=== PATIENT | male | born 1955 | race Caucasian/White ===

== ENCOUNTER 2016-08-31 22:49 | Observation (INO) | payer MEDICAID, OTHER ==
[2016-08-31] MEDS ORDERED: NS 500 ML IV ONE (23:00)
--- NOTE | 2016-08-31 23:00 | EDPHY ---
H & P Stated Complaint: sob cp HPI/ROS: HPI CHIEF COMPLAINT: Shortness of breath, chest pain HISTORY OF PRESENT ILLNESS: This patient very pleasant 61-year-old male significant past medical history for pulmonary embolism, hypertension, factor 5 Leiden non STEMI, presents emergency room shortness of breath and chest pain. He states for the past 2 days he has had fatigue generalized weakness, he noticed today that he had left calf swelling and pain, and also noticed over the past 2 days he has been having left-sided chest discomfort he describes it as a at times sharp pain however sometimes pressure. Nonradiating. Does not get worse with exertion however he does feel short of breath with exertion. No fever, no recent cough, no vomiting, no nausea, no referral pain. Pain does not get worse with exertion.Denies hemoptysis. States he has been compliant with his medication. Past Medical History: Saddle pulmonary embolism, hypertension, factor 5 Leiden deficiency, degenerative joint disease, non STEMI, hypertension, lumbar back pain, obstructive sleep apnea Past Surgical History: No recent surgical history Social History: denies daily use of drugs alcohol tobacco products Family History: Noncontributory ROS REVIEW OF SYSTEMS: A comprehensive 10 point review of systems is otherwise negative aside from elements mentioned in the history of present illness. Exam Constitutional appears well nontoxic triage nursing summary reviewed, vital signs reviewed, awake/alert. Eyes normal conjunctivae and sclera, EOMI, PERRLA. HENT normal inspection, atraumatic, moist mucus membranes, no epistaxis, neck supple/ no meningismus, no raccoon eyes. Respiratory clear to auscultation bilaterally, normal breath sounds, no respiratory distress, no wheezing. Cardiovascular rate normal, regular rhythm, no murmur, no edema, distal pulses normal. Gastrointestinal soft, non-tender, no rebound, no guarding, normal bowel sounds, no distension, no pulsatile mass. Genitourinary no CVA tenderness. Musculoskeletal no midline vertebral tenderness, full range of motion, no calf swelling, no tenderness of extremities, no meningismus, good pulses, neurovascularly intact. Skin pink, warm, & dry, no rash, skin atraumatic. Neurologic awake, alert and oriented x 3, AAOx3, moves all 4 extremities equally, motor intact, sensory intact, CN II-XII intact, normal cerebellar, normal vision, normal speech. Psychiatric normal mood/affect. Heme/Lymph/Immune no lymphadenopathy. Differential diagnosis includes but is not limited to: ACS, atypical chest pain , pneumothorax, pneumonia, pulmonary embolism, aortic dissection, congestive heart failure, tumor, musculoskeletal pain, esophageal pain, GERD, peptic ulcer disease, pancreatitis Medical Decision Making: To this patient having history of factor 5 Leiden deficiency with left leg swelling, sharp pleuritic pain will check an ultrasound the left lower extremity, blood work, troponin, EKG, chest x-ray one view, placed on full public area attendant he will receive full-dose aspirin he does take Eliquis. Will need to rule out pulmonary embolism as well. Re-evaluation: EKG interpretation by me on record in [facility] system. Impression time of EKG 0, this is sinus rhythm rate of 65 no acute ischemic changes appreciated specifically no ST elevation, ST depression, T-wave abnormalities prolonged intervals. Unremarkable EKG. 9: Patient received 1 dose of nitroglycerin this greatly improved his chest discomfort. He is now chest pain-free. [id number]: RE-EVALUATION AT THIS TIME IS NOTED THIS PATIENT HAS A NEGATIVE TROPONIN, NEGATIVE D-DIMER, HIS CHEST PAIN IMPROVED AFTER NITROGLYCERIN. ED x-ray chest one view: Negative for acute cardiopulmonary disease. Ultrasound of the left lower extremity The results of the study are negative for DVT I discussed the results of this study with the radiologist 1241: PATIENT IS RESTING COMFORTABLY HERE DID RE-EVALUATE HE IS CHEST PAIN- FREE. NO ACUTE DISTRESS. HE IS AGREEABLE FOR EACU OBSERVATION ADMISSION FOR CHEST PAIN EVALUATION. I spoke with Dr. Cross the hospitalist service agrees to admit this patient. Source: Patient - Personal History Current Tetanus/Diphtheria Vaccine: Yes Current Tetanus Diphtheria and Acellular Pertussis (TDAP): Yes - Medical/Surgical History Hx Asthma: No Hx Chronic Respiratory Disease: No Hx Diabetes: No Hx Cardiac Disease: No Hx Renal Disease: No Hx Cirrhosis: No Hx Alcoholism: No Hx HIV/AIDS: No Hx Splenectomy or Spleen Trauma: No Other PMH: back surgery x 2 fusions, implanted pain-Dilaudid pump in spine, right knee surgery, choley, HTN, anxiety, hypothyroidism, saddle PE. Factor V Leiden, Central and Obstructive sleep apnoea. - Social History Smoking Status: Never smoked Constitutional: Initial Vital Signs Temperature (C) 36.8 C 08/31/16 22:55 Heart Rate 67 08/31/16 22:55 Respiratory Rate 18 08/31/16 22:55 Blood Pressure 143/99 H 08/31/16 22:55 O2 Sat (%) 96 08/31/16 22:55 O2 Delivery Mode Room Air Allergies/Adverse Reactions: morphine Allergy (Verified 05/17/16 11:15) Hives BLOOD PRODUCTS Allergy (Uncoded 05/28/16 21:53) Anaphylaxis Home Medications: Medication Instructions Recorded LORazepam [Ativan (*)] 1 mg PO BID PRN 12/16/14 Venlafaxine HCl [Venlafaxine 37.5 mg PO BID 12/16/14 37.5MG (*)] Apixaban [Eliquis] 5 mg PO BID 02/17/16 Dilaudid Pain Pump 0 mg IPL DAILY 02/17/16 Levothyroxine [Synthroid 75 mcg 75 mcg PO DAILY06 02/17/16 (*)] Androgel 05/17/16 ENALAPRIL MALEATE 05/17/16 Hydrochlorothiazide 05/17/16 Potassium 05/17/16 Diazepam [Valium 5 MG (*)] 5 mg PO TID PRN #7 tab 05/28/16 Propranolol HCl 08/31/16 Medical Decision Making - Data Points Laboratory Results: Laboratory Results 08/31/16 23:15 08/31/16 23:15 08/31/16 08/31/16 08/31/16 23:15 23:15 23:15 WBC 6.52 10^3/uL 10^3/uL (3.80-9.50) RBC 5.55 10^6/uL 10^6/uL (4.40-6.38) Hgb 12.7 g/dL L g/dL (13.7-17.5) Hct 40.2 % % (40.0-51.0) MCV 72.4 fL L fL (81.5-99.8) MCH 22.9 pg L pg (27.9-34.1) MCHC 31.6 g/dL L g/dL (32.4-36.7) RDW 16.8 % H % (11.5-15.2) Plt Count 353 10^3/uL 10^3/uL (150-400) MPV 9.3 fL fL (8.7-11.7) Neut % (Auto) 52.4 % % (39.3-74.2) Lymph % (Auto) 32.4 % % (15.0-45.0) Price % (Auto) 10.0 % % (4.5-13.0) Eos % (Auto) 3.1 % % (0.6-7.6) Baso % (Auto) 1.8 % H % (0.3-1.7) Nucleat RBC Rel Count 0.0 % % (0.0-0.2) Absolute Neuts (auto) 3.42 10^3/uL 10^3/uL (1.70-6.50) Absolute Lymphs (auto) 2.11 10^3/uL 10^3/uL (1.00-3.00) Absolute Monos (auto) 0.65 10^3/uL 10^3/uL (0.30-0.80) Absolute Eos (auto) 0.20 10^3/uL 10^3/uL (0.03-0.40) Absolute Basos (auto) 0.12 10^3/uL H 10^3/uL (0.02-0.10) Absolute Nucleated RBC 0.00 10^3/uL 10^3/uL (0-0.01) Immature Gran % 0.3 % % (0.0-1.1) Immature Gran # 0.02 10^3/uL 10^3/uL (0.00-0.10) PT 13.1 SEC SEC (12.0-15.0) INR 1.00 (0.83-1.16) APTT 26.7 SEC SEC (23.0-38.0) D-Dimer 0.32 ug/mLFEU ug/mLFEU (0.00-0.50) Sodium 135 mEq/L mEq/L (134-144) Potassium 4.1 mEq/L mEq/L (3.5-5.2) Chloride 102 mEq/L mEq/L (97-110) Carbon Dioxide 23 mEq/l mEq/l (22-31) Anion Gap 10 mEq/L mEq/L (8-16) BUN 18 mg/dL mg/dL (7-23) Creatinine 0.8 mg/dL mg/dL (0.7-1.3) Estimated GFR > 60 Glucose 111 mg/dL H mg/dL (70-100) Calcium 9.0 mg/dL mg/dL (8.5-10.4) Magnesium 2.1 mg/dL mg/dL (1.6-2.3) Total Bilirubin 0.6 mg/dL mg/dL (0.1-1.4) Conjugated Bilirubin 0.5 mg/dL mg/dL (0.0-0.5) Unconjugated Bilirubin 0.1 mg/dL mg/dL (0.0-1.1) AST 38 IU/L IU/L (17-59) ALT 42 IU/L IU/L (21-72) Alkaline Phosphatase 63 IU/L IU/L (38-126) Creatine Kinase 186 IU/L IU/L (0-224) CK-MB (CK-2) Fraction 2.64 ng/mL ng/mL (0-3.19) Troponin I < 0.012 ng/mL ng/mL (0-0.034) NT-Pro-B Natriuret Pep 40 pg/mL pg/mL (0-125) Total Protein 7.1 g/dL g/dL (6.3-8.2) Albumin 4.4 g/dL g/dL (3.5-5.0) Lipase 180.0 IU/L IU/L (23-300) Medications Given: Discontinued Medications Aspirin (Aspirin) 325 mg PO EDNOW ONE Stop: 08/31/16 23:08 Last Admin: 08/31/16 23:24 Dose: 325 mg Sodium Chloride (Ns) 500 mls @ 0 mls/hr IV ONCE ONE PRN Reason: As Directed Stop: 08/31/16 23:01 Last Admin: 08/31/16 23:55 Dose: 500 mls Nitroglycerin (Nitrostat) 0.4 mg SL EDNOW ONE Stop: 08/31/16 23:08 Last Admin: 08/31/16 23:23 Dose: 0.4 mg Departure - Departure Disposition: [facility] Inpatient Acute Clinical Impression: Chest pain Qualifiers: Chest pain type: unspecified Qualified Code(s): R07.9 - Chest pain, unspecified Condition: Fair Referrals: FRANTZ CHÁVEZ [Primary Care Provider] - As per Instructions
[2016-08-31] MEDS ORDERED: ASPIRIN 325 MG TAB PO ONE (23:07)
[2016-08-31] MEDS ORDERED: NITROGLYCERIN 0.4 MG BTL SL ONE (23:07)
--- NOTE | 2016-08-31 23:14 | CPEKG ---
Heart Rate: 65 RR Interval: 923 P-R Interval: 172 QRSD Interval: 96 QT Interval: 396 QTC Interval: 412 P Oneida: 6 QRS Oneida: 4 T Wave [place]ida: 19 EKG Severity - NORMAL ECG - EKG Impression: SINUS RHYTHM Electronically Signed By: Efrain Grant 02-Sep-2016 09:39:31
[2016-08-31] MEDS ORDERED: ASPIRIN 81 MG CHEWABLE TAB ONE (23:21)
[2016-08-31 23:25] LABS: % IMMATURE GRANULYOCYTES 0.3 % (0.0-1.1); ABSOLUTE IMMATURE GRANULOCYTES 0.02 10^3/uL (0.00-0.10); ADD DIFF? NO; ADD MORPH? NO; ADD SCAN? NO; ATYPICAL LYMPHOCYTE FLAG 0 (0-99); FRAGMENT RBC FLAG 0 (0-99); HEMATOCRIT 40.2 % (40.0-51.0); HEMOGLOBIN 12.7 g/dL (13.7-17.5); LEFT SHIFT FLG 0 (0-99); LIPEMIA HEMOLYSIS FLAG 80 (0-99); MEAN CELL HEMOGLOBIN 22.9 pg (27.9-34.1); MEAN CELL HEMOGLOBIN CONCENTR. 31.6 g/dL (32.4-36.7); MEAN CELL VOLUME 72.4 fL (81.5-99.8); MEAN PLATELET VOLUME 9.3 fL (8.7-11.7); PLATELET CLUMPS FLAG 10 (0-99); PLATELET COUNT 353 10^3/uL (150-400); RED BLOOD CELL COUNT 5.55 10^6/uL (4.40-6.38); RED CELL DISTRIBUTION WIDTH 16.8 % (11.5-15.2)
[2016-08-31 23:34] LABS: APTT 26.7 SEC (23.0-38.0); PROTIME(PATIENT) 13.1 SEC (12.0-15.0)
[2016-08-31 23:39] LABS: ALANINE AMINOTRANSFERASE 42 IU/L (21-72); ALBUMIN 4.4 g/dL (3.5-5.0); ALKALINE PHOSPHATASE 63 IU/L (38-126); ANION GAP 10 mEq/L (8-16); ASPARTATE AMINOTRANSFERASE 38 IU/L (17-59); BILIRUBIN,TOTAL 0.6 mg/dL (0.1-1.4); BILIRUBIN-CONJUGATED 0.5 mg/dL (0.0-0.5); BILIRUBIN-UNCONJUGATED 0.1 mg/dL (0.0-1.1); CARBON DIOXIDE 23 mEq/l (22-31); CHLORIDE 102 mEq/L (97-110); CREATININE 0.8 mg/dL (0.7-1.3); GLOMERULAR FILTRATION RATE > 60; GLUCOSE 111 mg/dL (70-100); MAGNESIUM 2.1 mg/dL (1.6-2.3); POTASSIUM 4.1 mEq/L (3.5-5.2); SODIUM 135 mEq/L (134-144); TOTAL PROTEIN 7.1 g/dL (6.3-8.2)
[2016-08-31 23:51] LABS: CREATINE KINASE-MB FRACTION 2.64 ng/mL (0-3.19); TROPONIN I < 0.012 ng/mL (0-0.034)
[2016-09-01 01:01] VITALS: RESP 16
--- NOTE | 2016-09-01 03:07 | GHP ---
[f rep st] HISTORY AND PHYSICAL DATE OF ADMISSION: 09/01/2016 HISTORY OF PRESENT ILLNESS: The patient is a 61-year-old gentleman with a history of pulmonary embo lism and factor 5 Leiden, on chronic anticoagulation, who presents with chest pain. He had a spot i n the center of his chest. He has had pain here before. 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 It does necessarily radiate to his arm or his jaw. It is not associated with diaphoresis or shortness of breath, and is unlike the symptoms t hat led to his NSTEMI previously. He describes the pain as sharp, sometimes pressure, nonradiating. He has dyspnea on exertion, but i s not worse lately. He thought maybe he had some increased swelling in his left leg, but other than that, he has not had any pleuritic pain. No fever, chills, cough, sputum, nausea, vomiting, diarrh ea. No hemoptysis. REVIEW OF SYSTEMS: A complete 10-point review of systems conducted, negative except as noted in the HPI. PAST MEDICAL HISTORY: 1. Pulmonary embolism. 2. Factor 5 Leiden, apparently has had a saddle embolism in the past. 3. NSTEMI with subsequent clean coronary angiogram. 4. Workup for pheochromocytoma was negative. 5. IgA deficiency. 6. 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 7. Hypothyroidism. 8. Chronic benzo and opioid dependence. 9. Obstructive sleep apnea. 10. He has had spinal fusion and laminectomy x4. 11. Right knee meniscus repair. 12. Leg hematoma evacuation of cholecystectomy. 13. Iron deficiency. FAMILY HISTORY: His mother has a clotting disorder. SOCIAL HISTORY: No tobacco. No alcohol. Is on disability. Lives with his son. ALLERGIES: Morphine and blood products. HOME MEDICATIONS: AndroGel, apixaban, diazepam, Dilaudid pain pump, enalapril, hydrochlorothiazide, levothyroxine, lorazepam, potassium, propranolol, venlafaxine. PHYSICAL EXAM: VITAL SIGNS: Temp 36.8, blood pressure 143/99, pulse 67, breathing 18 times a minut e, 96% on room air. GENERAL: No acute distress. HEENT: Sclerae anicteric. Oropharynx clear. Mu cous membranes are moist. NECK: Supple without lymphadenopathy or JVD. LUNGS: Clear to auscultat ion bilaterally. HEART: S1, S2. ABDOMEN: Soft, nontender, nondistended. LOWER EXTREMITIES: Wit hout edema. Calves are nontender. SKIN: Without rash. NEUROLOGIC: Nonfocal. There is no lower extremity edema bilaterally. LABS: White count 6.5, hematocrit 40, MCV is low at 72, platelets are 353,000, INR is 1. Sodium 13 5, potassium 4.1, chloride 102, bicarb 23, BUN 18, creatinine 0.8, glucose 111. LFTs normal. Tropo leandro less than 0.012. Lipase is 180. Chest x-ray, interpreted by me, shows no acute cardiopulmonary disease. EKG, interpreted by ny, shows sinus at 65 with normal axis and intervals. No ST or T-wav e changes. Unchanged from prior. DVT study shows no DVT. I discussed the case with Dr. Tj Flores of the emergency department. ASSESSMENT AND PLAN: A 61-year-old gentleman who presents with chest pain. 1. Chest pain. This is atypical in nature. He has had a catheterization performed 6 months ago wi th pretty minimal coronary disease. He has a flat troponin. At this point in time, I will cycle tr oponins and monitor on telemetry. I think he does not need any further testing. 2. Pulmonary embolism. Continues Eliquis. 3. Chronic pain. Continue his pain medicines. 4. Hypertension. Continue his medications. 5. Disposition. The patient can be discharged in the morning if his troponins are negative. /[id number]/MODL
[2016-09-01 07:18] VITALS: BP 136/90; PULSE 68; TEMP 98; O2SAT 96
--- NOTE | 2016-09-01 07:33 | GDS ---
[f rep st] DISCHARGE SUMMARY DISCHARGE DIAGNOSES: Chest pain. HOSPITAL COURSE: Please see admission history and physical by Dr. Carlos rCoss. The patient pres ented to the hospital with chest pain. It was similar to a pain that has been attributed to residua l pain from pulmonary embolism. He had a nonischemic EKG that was unchanged. He had an angiogram s howing essentially minimal coronary disease just 6 months ago. The patient had an EKG done to get t o this morning to go to a court date with his son. He is discharged with no further workup. Other discharge diagnoses include history of pulmonary embolism, factor V Leiden, chronic pain with a Dila udid pain pump. /[id number]/MODL
[2016-09-01] MEDS ORDERED: APIXABAN 5 MG TAB PO ONE (08:30)
== END 2016-09-01 08:10 | disposition home or self-care (01) ==
LOC: F1N 09-01 01:26 → UNDODISOB 09-01 08:07
PROVIDERS: ADMIT Internal Medicine; ATTEND Internal Medicine
DX: R07.9 Chest pain, unspecified (principal); M79.662 Pain in left lower leg; Z86.711 Personal history of pulmonary embolism; D68.51 Activated protein C resistance; G89.29 Other chronic pain; I10 Essential (primary) hypertension; I25.2 Old myocardial infarction; G47.33 Obstructive sleep apnea (adult) (pediatric); E03.9 Hypothyroidism, unspecified; F11.20 Opioid dependence, uncomplicated; Z98.1 Arthrodesis status; Z79.01 Long term (current) use of anticoagulants
CPT/HCPCS: 71010; 93005; 93971; G0378

== ENCOUNTER 2017-04-21 16:26 | Emergency (ER) | payer MEDICAID ==
[2017-04-21 16:37] VITALS: RESP 18; TEMP 98.1
[2017-04-21] MEDS ORDERED: ONDANSETRON 4 MG/2 ML VIAL IVP ONE (17:12)
[2017-04-21] MEDS ORDERED: NS 1,000 ML IV ONE ×2 (17:12→18:29)
--- NOTE | 2017-04-21 17:14 | EDPHY ---
H & P Time Seen by Provider: 04/21/17 17:11 HPI/ROS: CHIEF COMPLAINT: Nausea, vomiting HISTORY OF PRESENT ILLNESS: The patient is a 61 y/o male complaining of nausea and vomiting since 05:00, 12 hours ago. Multiple episodes of vomiting and inability to keep oral fluids down. He tried taking half a Zofran, but was unable to keep it down. Denies abdominal pain, diarrhea, constipation, chest pain, urinary complaints, fever or other pertinent symptoms. REVIEW OF SYSTEMS: Aside from elements discussed in the HPI, a comprehensive 10-point review of systems was reviewed and is negative. Past Medical/Surgical History: Cholecystectomy, PE, hypertension, 2 spinal fusions, implanted Dilaudid pump, sleep apnea, anemia Social History: , lives in [place] Smoking Status: Never smoked Physical Exam: General Appearance: Alert, pleasant Eyes: Pupils equal and round, no conjunctival pallor ENT, Mouth: Mucous membranes moist Neck: Normal inspection Respiratory: Lungs are clear to auscultation Cardiovascular: Regular rate and rhythm Gastrointestinal: Abdomen is soft and non- tender Neurological: A&O, nonfocal, normal gait Skin: Warm and dry, no rash Extremities: Normal inspection Psychiatric: Mood and affect normal Constitutional: Initial Vital Signs Temperature (C) 36.7 C 04/21/17 16:34 Heart Rate 72 04/21/17 16:34 Respiratory Rate 18 04/21/17 16:34 Blood Pressure 113/90 H 04/21/17 16:34 O2 Sat (%) 92 04/21/17 16:34 O2 Delivery Mode Room Air Allergies/Adverse Reactions: morphine Allergy (Verified 04/21/17 16:33) Hives BLOOD PRODUCTS Allergy (Uncoded 05/28/16 21:53) Anaphylaxis Home Medications: Medication Instructions Recorded Apixaban [Eliquis] 5 mg PO BID 02/17/16 Dilaudid Pain Pump 0 mg IPL DAILY 02/17/16 Levothyroxine [Synthroid 75 mcg 75 mcg PO DAILY06 02/17/16 (*)] Enalapril Dose Unknown 09/01/16 Hydrochlorothiazide [HCTZ (*)] 25 mg PO DAILY 09/01/16 Potassium Cl [Klor-Con 20 meq (*)] 20 meq PO DAILY 09/01/16 Propranolol Dose Unknown TID 09/01/16 TESTOSTERONE [Androgel 1.62% pump] 5 luis TD DAILY 09/01/16 Venlafaxine HCl [Venlafaxine 75MG 75 mg PO HS 09/01/16 (*)] Medical Decision Making ED Course/Re-evaluation: The patient is a 61 y/o male presenting with nausea and vomiting. His physical exam is normal. 180: Reassessed patient, he is feeling better after 4mg IV Zofran and 1L IV NS. 1903: Reassessed patient, he continues to feel better. Tolerating oral fluids well. Abdomen remained soft and nontender. Return precautions provided; patient is comfortable with this plan. Differential Diagnosis: Differential diagnosis includes though it is not limited to appendicitis, cholecystitis, diverticulitis, pyelonephritis, bowel perforation, small bowel obstruction. - Data Points Medications Given: Discontinued Medications Sodium Chloride (Ns) 1,000 mls @ 0 mls/hr IV EDNOW ONE; Wide Open PRN Reason: Protocol Stop: 04/21/17 17:13 Last Admin: 04/21/17 17:16 Dose: 1,000 mls Sodium Chloride (Ns) 1,000 mls @ 0 mls/hr IV ONCE ONE PRN Reason: Wide Open Stop: 04/21/17 18:30 Last Admin: 04/21/17 18:30 Dose: 1,000 mls Ondansetron HCl (Zofran) 4 mg IVP EDNOW ONE Stop: 04/21/17 17:13 Last Admin: 04/21/17 17:16 Dose: 4 mg Ondansetron HCl (Zofran Odt 4 Mg Prepack#2) 1 btl TAKEHOME EDNOW ONE Stop: 04/21/17 17:26 Last Admin: 04/21/17 19:19 Dose: 1 btl Departure - Departure Disposition: Home, Routine, Self-Care Clinical Impression: Vomiting Qualifiers: Vomiting type: unspecified Vomiting Intractability: non-intractable Nausea presence: with nausea Qualified Code(s): R11.2 - Nausea with vomiting, unspecified Condition: Good Instructions: Ondansetron (By mouth), Acute Nausea and Vomiting (ED) Additional Instructions: 1. Only consume clear liquids for 24 hours. 2. Take Zofran as needed for nausea, 1 tablet under the tongue every 6 hours. 3. Follow up with your primary care provider in the 72 hours. 4. Return to the ED if you experience fever, abdominal pain, urinary or bowel complaints, inability to keep liquids down or other worsening of your symptoms. Referrals: FRANTZ CHÁVEZ [Primary Care Provider] - As per Instructions Report Scribed for: Amita Carr Report Scribed by: Tere Thrasher Date of Report: 04/21/17 Time of Report: 17:13 Physician Review and Approval Statement: 04/21/17 17:13 Portions of this note were transcribed by a medical safety director. I personally performed a history, physical exam, medical decision making, and confirmed accuracy of information the transcribed note.
[2017-04-21] MEDS ORDERED: ONDANSETRON 4MG PREPACK#2 BTL TAKEHOME ONE (17:25)
[2017-04-21 19:24] VITALS: BP 105/64; PULSE 64; O2SAT 95
== END 2017-04-21 19:25 | disposition home or self-care (01) ==
DX: R11.2 Nausea with vomiting, unspecified (principal); E86.9 Volume depletion, unspecified; I10 Essential (primary) hypertension
CPT/HCPCS: 96374; J2405

== ENCOUNTER 2017-04-22 11:09 | Emergency (ER) | payer MEDICAID ==
[2017-04-22 11:17] VITALS: RESP 16
--- NOTE | 2017-04-22 12:27 | EDPHY ---
H & P Stated Complaint: Continued symptoms of N/V and difficulty in voiding, seen here last night. Time Seen by Provider: 04/22/17 12:26 HPI/ROS: CHIEF COMPLAINT: Nausea, vomiting, constipation HISTORY OF PRESENT ILLNESS: The patient presents to the ED with several days of nausea, vomiting, constipation and decreased urine output. The patient was seen in the emergency department last night and felt to have a viral enteritis. He was discharged home with antinausea medication. The patient continued to have vomiting today. He has not yet had a bowel movement. He complains of mild abdominal bloating distension. The patient does have a abdominal surgical history no worthy for cholecystectomy and a anterior spinal approach. The patient does have a history of hypertension. He also has a history of pulmonary embolism and is anticoagulated with Eliquis. REVIEW OF SYSTEMS: A comprehensive 10 point review of systems is otherwise negative aside from elements mentioned in the history of present illness. Source: Patient Exam Limitations: No limitations - Personal History Current Tetanus Diphtheria and Acellular Pertussis (TDAP): Yes Tetanus Vaccine Date: < 10 years - Medical/Surgical History Hx Asthma: No Hx Chronic Respiratory Disease: No Hx Diabetes: No Hx Cardiac Disease: No Hx Renal Disease: No Hx Cirrhosis: No Hx Alcoholism: No Hx HIV/AIDS: No Hx Splenectomy or Spleen Trauma: No Other PMH: back surgery x 2 fusions, implanted pain-Dilaudid pump in spine, right knee surgery, choley, HTN, anxiety, hypothyroidism, saddle PE. Factor V Leiden, Central and Obstructive sleep apnoea. - Social History Smoking Status: Never smoked - Physical Exam Exam: General Appearance: Alert, no distress Eyes: Pupils equal and round no pallor or injection ENT, Mouth: Mucous membranes moist Respiratory: There are no retractions, lungs are clear to auscultation Cardiovascular: Regular rate and rhythm Gastrointestinal: Slightly protuberant, minimal tenderness, no peritoneal sounds, decreased bowel sounds Neurological: A&O, normal motor function, normal sensory exam, normal cranial nerves Skin: Warm and dry, no rashes Musculoskeletal: Neck is supple nontender Extremities: symmetrical, full range of motion Constitutional: Initial Vital Signs Temperature (C) 36.5 C 04/22/17 11:12 Heart Rate 70 04/22/17 11:12 Respiratory Rate 16 04/22/17 11:12 Blood Pressure 114/72 04/22/17 11:12 O2 Sat (%) 98 04/22/17 11:12 O2 Delivery Mode Room Air Allergies/Adverse Reactions: morphine Allergy (Verified 04/21/17 16:33) Hives BLOOD PRODUCTS Allergy (Uncoded 05/28/16 21:53) Anaphylaxis Home Medications: Medication Instructions Recorded Apixaban [Eliquis] 5 mg PO BID 02/17/16 Dilaudid Pain Pump 0 mg IPL DAILY 02/17/16 Levothyroxine [Synthroid 75 mcg 75 mcg PO DAILY06 02/17/16 (*)] Enalapril Dose Unknown 09/01/16 Hydrochlorothiazide [HCTZ (*)] 25 mg PO DAILY 09/01/16 Potassium Cl [Klor-Con 20 meq (*)] 20 meq PO DAILY 09/01/16 Propranolol Dose Unknown TID 09/01/16 TESTOSTERONE [Androgel 1.62% pump] 5 luis TD DAILY 09/01/16 Venlafaxine HCl [Venlafaxine 75MG 75 mg PO HS 09/01/16 (*)] Medical Decision Making - Diagnostics Imaging Results: Imaging Impressions Abdomen X-Ray 04/22/17 12:36 Impression: Constipation. No evidence of ileus or mechanical obstruction. ED Course/Re-evaluation: The patient presents to the ED with several days of constipation, nausea and vomiting. The patient is noted to have minimal abdominal tenderness on exam. The patient's vital signs are stable. The patient had an IV established. He received a L normal saline. He received 4 mg of IV Zofran. Given the patient's complaints, a abdominal x-ray was ordered which demonstrates fairly significant constipation. Patient underwent serial examinations in the emergency department by myself. At this point time I feel the etiology of his symptoms are most likely secondary to underlying constipation is post to infectious enteritis. The patient did have a bladder scan in the emergency department which demonstrated a urinary volume of 850 mL. A Palmer catheter was placed. The patient will be instructed to use magnesium citrate and enemas at home. He should continue to use Zofran as needed. The patient is advised to return to the emergency department for markedly worsening symptoms or other concerns. There is no evidence of an acute abdomen at this point time. The patient has no laboratory or clinical evidence of a metabolic abnormality or renal failure. The patient did have a bladder scan in the emergency department which demonstrated a urinary volume of 850 mL. I spoke with the patient's primary neurosurgeon Dr. Fuentes who tells me the patient had a recent MRI which did not show any findings worrisome for a cauda equina type syndrome. Dr. Fuentes's recommendation is that the patient follow up with his regular pain specialist to review his current pump settings. Differential Diagnosis: Differential diagnosis considered includes perforation, obstruction, constipation, dehydration, renal failure, gastroenteritis - Data Points Laboratory Results: Laboratory Results 04/22/17 12:58 04/22/17 12:58 04/22/17 04/22/17 12:58 12:58 WBC 9.23 10^3/uL 10^3/uL (3.80-9.50) RBC 5.23 10^6/uL 10^6/uL (4.40-6.38) Hgb 13.2 g/dL L g/dL (13.7-17.5) Hct 41.1 % % (40.0-51.0) MCV 78.6 fL L fL (81.5-99.8) MCH 25.2 pg L pg (27.9-34.1) MCHC 32.1 g/dL L g/dL (32.4-36.7) RDW 15.4 % H % (11.5-15.2) Plt Count 323 10^3/uL 10^3/uL (150-400) MPV 8.8 fL fL (8.7-11.7) Neut % (Auto) 86.7 % H % (39.3-74.2) Lymph % (Auto) 6.0 % L % (15.0-45.0) [place] % (Auto) 6.0 % % (4.5-13.0) Eos % (Auto) 0.4 % L % (0.6-7.6) Baso % (Auto) 0.7 % % (0.3-1.7) Nucleat RBC Rel Count 0.0 % % (0.0-0.2) Absolute Neuts (auto) 8.01 10^3/uL H 10^3/uL (1.70-6.50) Absolute Lymphs (auto) 0.55 10^3/uL L 10^3/uL (1.00-3.00) Absolute Monos (auto) 0.55 10^3/uL 10^3/uL (0.30-0.80) Absolute Eos (auto) 0.04 10^3/uL 10^3/uL (0.03-0.40) Absolute Basos (auto) 0.06 10^3/uL 10^3/uL (0.02-0.10) Absolute Nucleated RBC 0.00 10^3/uL 10^3/uL (0-0.01) Immature Gran % 0.2 % % (0.0-1.1) Immature Gran # 0.02 10^3/uL 10^3/uL (0.00-0.10) Sodium 134 mEq/L mEq/L (134-144) Potassium 4.2 mEq/L mEq/L (3.5-5.2) Chloride 95 mEq/L L mEq/L (97-110) Carbon Dioxide 25 mEq/l mEq/l (22-31) Anion Gap 14 mEq/L mEq/L (8-16) BUN 14 mg/dL mg/dL (7-23) Creatinine 0.9 mg/dL mg/dL (0.7-1.3) Estimated GFR > 60 Glucose 109 mg/dL H mg/dL (70-100) Calcium 9.0 mg/dL mg/dL (8.5-10.4) Total Bilirubin 0.7 mg/dL mg/dL (0.1-1.4) Conjugated Bilirubin 0.1 mg/dL mg/dL (0.0-0.5) Unconjugated Bilirubin 0.6 mg/dL mg/dL (0.0-1.1) AST 40 IU/L IU/L (17-59) ALT 47 IU/L IU/L (21-72) Alkaline Phosphatase 49 IU/L IU/L (38-126) Total Protein 7.2 g/dL g/dL (6.3-8.2) Albumin 4.6 g/dL g/dL (3.5-5.0) Lipase 52 IU/L IU/L (23-300) Medications Given: Discontinued Medications Sodium Chloride (Ns) 1,000 mls @ 0 mls/hr IV EDNOW ONE; Wide Open PRN Reason: Protocol Stop: 04/22/17 12:30 Last Admin: 04/22/17 13:39 Dose: 1,000 mls Departure - Departure Disposition: Home, Routine, Self-Care Clinical Impression: Acute abdominal pain, Constipation, Vomiting, Urinary retention Condition: Good Instructions: Constipation (ED) Additional Instructions: 1. Please continue Zofran as needed for nausea. 2. Please use fleets enemas which are available [id number] and magnesium citrate for constipation which is likely exacerbating your symptoms. 3. Please return to the emergency department for markedly worsening symptoms, high fever or other concerns. 4. Please schedule a follow-up appointment with your primary care provider to discuss Palmer catheter removal and the 1 week. 5. Please follow up with Dr. Fuentes as scheduled. He does recommend following up with your regular pain physician to review your current pump settings. Referrals: FRANTZ CHÁVEZ [Primary Care Provider] - As per Instructions
[2017-04-22] MEDS ORDERED: NS 1,000 ML IV ONE (12:29)
[2017-04-22 13:08] LABS: % IMMATURE GRANULYOCYTES 0.2 % (0.0-1.1); ABSOLUTE IMMATURE GRANULOCYTES 0.02 10^3/uL (0.00-0.10); ADD DIFF? NO; ADD MORPH? NO; ADD SCAN? NO; ATYPICAL LYMPHOCYTE FLAG 0 (0-99); FRAGMENT RBC FLAG 0 (0-99); HEMATOCRIT 41.1 % (40.0-51.0); HEMOGLOBIN 13.2 g/dL (13.7-17.5); LEFT SHIFT FLG 0 (0-99); LIPEMIA HEMOLYSIS FLAG 80 (0-99); MEAN CELL HEMOGLOBIN 25.2 pg (27.9-34.1); MEAN CELL HEMOGLOBIN CONCENTR. 32.1 g/dL (32.4-36.7); MEAN CELL VOLUME 78.6 fL (81.5-99.8); MEAN PLATELET VOLUME 8.8 fL (8.7-11.7); PLATELET CLUMPS FLAG 10 (0-99); PLATELET COUNT 323 10^3/uL (150-400); RED BLOOD CELL COUNT 5.23 10^6/uL (4.40-6.38); RED CELL DISTRIBUTION WIDTH 15.4 % (11.5-15.2)
[2017-04-22 13:29] LABS: ALANINE AMINOTRANSFERASE 47 IU/L (21-72); ALBUMIN 4.6 g/dL (3.5-5.0); ALKALINE PHOSPHATASE 49 IU/L (38-126); ANION GAP 14 mEq/L (8-16); ASPARTATE AMINOTRANSFERASE 40 IU/L (17-59); BILIRUBIN,TOTAL 0.7 mg/dL (0.1-1.4); BILIRUBIN-CONJUGATED 0.1 mg/dL (0.0-0.5); BILIRUBIN-UNCONJUGATED 0.6 mg/dL (0.0-1.1); CARBON DIOXIDE 25 mEq/l (22-31); CHLORIDE 95 mEq/L (97-110); CREATININE 0.9 mg/dL (0.7-1.3); GLOMERULAR FILTRATION RATE > 60; GLUCOSE 109 mg/dL (70-100); POTASSIUM 4.2 mEq/L (3.5-5.2); SODIUM 134 mEq/L (134-144); TOTAL PROTEIN 7.2 g/dL (6.3-8.2)
[2017-04-22 15:48] VITALS: BP 117/71; PULSE 68; TEMP 98.4; O2SAT 94
== END 2017-04-22 16:38 | disposition home or self-care (01) ==
PROC: 0T9B70Z Drainage of Bladder with Drainage Device, Via Natural or Artificial Opening (ICD-10-PCS; principal; 2017-04-22)
DX: K59.00 Constipation, unspecified (principal); R33.9 Retention of urine, unspecified; R11.10 Vomiting, unspecified; I10 Essential (primary) hypertension; E86.9 Volume depletion, unspecified

== ENCOUNTER 2017-10-03 13:14 | Emergency (ER) | payer MEDICAID ==
[2017-10-03] MEDS ORDERED: DOXYCYCLINE HYCLATE 100 MG CAP/TAB PO ONE (15:02)
--- NOTE | 2017-10-03 15:18 | EDPHY ---
H & P Time Seen by Provider: 10/03/17 13:44 HPI/ROS: HPI Tick imbedded in back. 62-year-old male by private vehicle with his . This patient reports that he and his noted a tick imbedded in his left mid shoulder blade region this morning. They did not notice it last night. No travel to the [facility] or [place]. Recent activity hiking locally. Denies any other complaints. ROS: Constitutional: No fever, no chills. No weakness. Respiratory: No cough. No shortness of breath. Cardiac: No chest pain, no palpitations. Gastrointestinal: No abdominal pain, no vomiting, no diarrhea. Musculoskeletal: No back pain. No neck pain. No myalgias or arthralgias. Skin: No rashes. As above. Neurological: No headache. No focal weakness or altered sensation. Past medical history: Back surgery x2 with fusions, implanted Dilaudid pump and spine, right knee surgery, cholecystectomy, anxiety, hypertension, hypothyroidism, saddle PE, factor 5 Leiden deficiency currently on Eliquis, sleep apnea. Social history: Nonsmoker. No alcohol. Here with his . Physical Exam: General Appearance: Alert, no distress. This patient is responding to questions appropriately and in full sentences. This patient appears well- hydrated and well-nourished. Eyes: Pupils equal and round no pallor or injection. No lid edema, erythema or injection. Neurological: Motor sensory function is grossly intact. Cranial nerves are normal. Gait is normal. Skin: Warm and dry, no rashes. He has a partially engorged tic left mid shoulder blade region, there is a small amount of localized erythema immediately surrounding the tick. No ecchymosis. No edema beyond erythema. Musculoskeletal: Neck is supple and nontender. Extremities are symmetrical. All joints range without pain or impingement. Psychiatric: No agitation. No depression. Database: EKG: Imaging: Procedures: Emergency department course: Area of tick bite swab with chlorhexidine. On removal of the large tic a smaller 1 just underneath it was found and removed. Head and all components of both removed without complication. Explained to the patient that based on location here in [place] and no travel to endemic areas for Lyme disease and [place] spotted fever that these were very unlikely. The patient is asked me about prophylactic antibiotics and he was given a 1 time dose of 200 mg of doxycycline. His remaining emergency department course otherwise has been uneventful. He was discharged in good condition with his . Customary follow-up and return to emergency department precautions discussed with him and his . All their questions were answered. The patient was discharged in good condition. Differential Diagnosis: The differential diagnosis on this patient includes but is not limited to tic implantation to upper back. Tic paralysis, [place] spotted fever, Lyme disease, localized cellulitis unlikely. This represents a partial list of diagnoses considered. These considerations are based on history, physical exam , past history, reassessment and diagnostic testing. Smoking Status: Never smoked Constitutional: Initial Vital Signs Temperature (C) 37.9 C 10/03/17 13:22 Heart Rate 105 H 10/03/17 13:22 Respiratory Rate 16 10/03/17 13:22 Blood Pressure 128/87 H 10/03/17 13:22 O2 Sat (%) 96 10/03/17 13:22 O2 Delivery Mode Room Air Allergies/Adverse Reactions: morphine Allergy (Verified 04/21/17 16:33) Hives BLOOD PRODUCTS Allergy (Uncoded 05/28/16 21:53) Anaphylaxis Home Medications: Medication Instructions Recorded Apixaban [Eliquis] 5 mg PO BID 02/17/16 Dilaudid Pain Pump 0 mg IPL DAILY 02/17/16 Levothyroxine [Synthroid 75 mcg 75 mcg PO DAILY06 02/17/16 (*)] Enalapril Dose Unknown 09/01/16 Hydrochlorothiazide [HCTZ (*)] 25 mg PO DAILY 09/01/16 Potassium Cl [Klor-Con 20 meq (*)] 20 meq PO DAILY 09/01/16 Propranolol Dose Unknown TID 09/01/16 TESTOSTERONE [Androgel 1.62% pump] 5 luis TD DAILY 09/01/16 Venlafaxine HCl [Venlafaxine 75MG 75 mg PO HS 09/01/16 (*)] Ondansetron Odt [Zofran Odt] 4 mg PO Q4PRN PRN #20 tab 04/22/17 Reglan 10/03/17 Medical Decision Making - Data Points Medications Given: Discontinued Medications Doxycycline Hyclate (Doxycycline Hyclate) 200 mg PO EDNOW ONE PRN Reason: Protocol Stop: 10/03/17 15:03 Last Admin: 10/03/17 15:08 Dose: 200 mg Departure - Departure Disposition: Home, Routine, Self-Care Clinical Impression: Tick bite of back Condition: Good Instructions: Tick Bite (ED) Additional Instructions: Read and follow provided instructions. Follow-up with your primary care physician in 1-2 days for re-evaluation. Continue your medications as prescribed. Return to the emergency department for worsening symptoms, worsening localized swelling or redness to the area of the bite, fever, weakness, headache, neck pain or other serious concerns. Referrals: FRANTZ CHÁVEZ [Primary Care Provider] - As per Instructions
[2017-10-03 15:34] VITALS: BP 128/98
== END 2017-10-03 15:34 | disposition home or self-care (01) ==
DX: S40.262A Insect bite (nonvenomous) of left shoulder, initial encounter (principal); I10 Essential (primary) hypertension; X58.XXXA Exposure to other specified factors, initial encounter; Y92.89 Other specified places as the place of occurrence of the external cause; Y99.8 Other external cause status; Y93.01 Activity, walking, marching and hiking